=== PATIENT | female | born 1975 | race Caucasian/White ===

== ENCOUNTER 2017-09-21 14:23 | Emergency (ER) | payer OTHER ==
[~2017-09-21] VITALS: Ht 170.2 cm; Wt 108.9 kg
[~2017-09-21 14:23] MED LIST: Crutch1 EACH MISC; LORA10 PO; TRAM50 PO; Ultram50 MG PO; VERA120ERB PO
[2017-12-31] MEDS ORDERED: GABA300 PO (11:05)
[2017-12-31] MEDS ORDERED: METF500 PO (11:05)
[2017-12-31] MEDS ORDERED: TROSPIUM CHLORI20 MG PO (11:05)
[2017-12-31] MEDS ORDERED: MELO7.5 PO (11:06)
[2018-01-07] MEDS ORDERED: CEPH500 PO (03:39)
== END 2017-09-21 15:06 | disposition home or self-care (01) ==
LOC: ER 14:23
DX: H92.02 Otalgia, left ear (principal); Z79.899 Other long term (current) drug therapy
CPT/HCPCS: 99282

== ENCOUNTER → 2017-11-18 | Outpatient (CLI) | payer OTHER ==
[2017-11-20 13:16] LABS: HPV Genotype 16 Not Detected (NOTDET); HPV Genotype 18 Not Detected (NOTDET)
[2017-11-28 08:26] LABS: HPV High Risk Other Not Detected (NOTDET)
[2017-11-28 09:50] LABS: Source CERVIX
== END | disposition home or self-care (01) ==
LOC: LAB SHORT 15:51 → OLS 15:51
PROVIDERS: Nurse Practitioner Women's Health
DX: Z12.4 Encounter for screening for malignant neoplasm of cervix (principal); Z91.89 Other specified personal risk factors, not elsewhere classified
CPT/HCPCS: 87624; G0123

== ENCOUNTER → 2017-12-18 | Outpatient (CLI) | payer OTHER | END | disposition home or self-care (01) | LOC: LAB SHORT 16:27 → LAB 16:27 | DX: N39.3 Stress incontinence (female) (male) (principal) | CPT/HCPCS: 87086 ==

== ENCOUNTER 2018-01-02 06:07 | Day surgery (SDC) | payer OTHER ==
[~2018-01-02] VITALS: Ht 167.6 cm; Wt 112.5 kg
[~2018-01-02 06:07] MED LIST changes: +GABA300 PO; +MELO7.5 PO; +METF500 PO; +TROSPIUM CHLORI20 MG PO
[2018-01-02] MEDS ORDERED: FLONASE ALLERG9.9 ML (06:36)
[2018-01-02 08:16] LABS: Hematocrit 31.7 % (33.0-51.0); Hemoglobin 10.5 g/dL (11.5-16.0)
[2018-01-02 14:59] LABS: BASOPHILS ABSOLUTE AUTO 0.04 K/mm3 (0.00-0.23); BASOPHILS PERCENT AUTO 0 % (0-2); EOSINOPHILS PERCENT AUTO 0 % (0-6); Hematocrit 31.6 % (33.0-51.0); Hemoglobin 10.3 g/dL (11.5-16.0); IMMATURE GRAN ABSOLUTE AUTO 0.05 K/mm3 (0.00-0.10); IMMATURE GRAN PERCENT AUTO 0 % (0-1); LYMPHOCYTES ABSOLUTE AUTO 0.54 K/mm3 (0.84-5.20); LYMPHOCYTES PERCENT AUTO 3 % (21-46); MONOCYTES ABSOLUTE AUTO 0.18 K/mm3 (0.16-1.47); MONOCYTES PERCENT AUTO 1 % (4-13); Mean Corpuscular HGB 29.4 pg (26.0-34.0); Mean Corpuscular HGB Conc 32.6 g/dL (31.5-36.5); Mean Corpuscular Volume 90 fL (80-100); NEUTROPHILS ABSOLUTE AUTO 14.86 K/mm3 (1.96-9.15); NEUTROPHILS PERCENT AUTO 95 % (41-73); Platelet Count 325 K/mm3 (150-400); RDW Coefficient Variation 12.2 % (11.7-14.2); RDW Standard Deviation 39.9 fL (35.1-46.3); White Blood Cell Count 15.67 K/mm3 (4.00-11.30)
[2018-01-03 04:09] LABS: BASOPHILS ABSOLUTE AUTO 0.02 K/mm3 (0.00-0.23); BASOPHILS PERCENT AUTO 0 % (0-2); EOSINOPHILS ABSOLUTE AUTO 0.01 K/mm3 (0.00-0.68); EOSINOPHILS PERCENT AUTO 0 % (0-6); Hematocrit 26.8 % (33.0-51.0); Hemoglobin 8.9 g/dL (11.5-16.0); IMMATURE GRAN ABSOLUTE AUTO 0.06 K/mm3 (0.00-0.10); IMMATURE GRAN PERCENT AUTO 0 % (0-1); LYMPHOCYTES ABSOLUTE AUTO 1.59 K/mm3 (0.84-5.20); LYMPHOCYTES PERCENT AUTO 11 % (21-46); MONOCYTES ABSOLUTE AUTO 0.81 K/mm3 (0.16-1.47); MONOCYTES PERCENT AUTO 6 % (4-13); Mean Corpuscular HGB 29.6 pg (26.0-34.0); Mean Corpuscular HGB Conc 33.2 g/dL (31.5-36.5); Mean Corpuscular Volume 89 fL (80-100); Mean Platelet Volume 9.9 fL (9.1-12.4); NEUTROPHILS ABSOLUTE AUTO 12.04 K/mm3 (1.96-9.15); NEUTROPHILS PERCENT AUTO 83 % (41-73); Platelet Count 336 K/mm3 (150-400); RDW Coefficient Variation 12.2 % (11.7-14.2); RDW Standard Deviation 40.2 fL (35.1-46.3); Red Blood Cell Count 3.01 M/mm3 (3.80-5.20); White Blood Cell Count 14.53 K/mm3 (4.00-11.30)
[2018-01-03] MEDS ORDERED: Percocet 5-3251 EACH PO (12:20)
[2018-01-07] MEDS ORDERED: CEPH500 PO (03:39)
== END 2018-01-03 18:50 | disposition home or self-care (01) ==
LOC: ORSCMMR 06:07 → ORD 07:30 → SURS 11:00 → ORSCMMR 01-03 18:50
PROVIDERS: Obstetrics & Gynecology Gynecology
DX: N92.0 Excessive and frequent menstruation with regular cycle (principal); N39.3 Stress incontinence (female) (male); N85.2 Hypertrophy of uterus; D25.9 Leiomyoma of uterus, unspecified; N94.6 Dysmenorrhea, unspecified; D50.0 Iron deficiency anemia secondary to blood loss (chronic); K21.9 Gastro-esophageal reflux disease without esophagitis; E11.9 Type 2 diabetes mellitus without complications; E66.01 Morbid (severe) obesity due to excess calories; Z68.41 Body mass index [BMI] 40.0-44.9, adult; Z79.899 Other long term (current) drug therapy
CPT/HCPCS: 36415; 85014; 85018; 85025; 88307; C1771; J0171; J0690; J1100; J1885; J2270; J2405; J3010; J7120